=== PATIENT | male | born 1980 | race Two or more races ===

== ENCOUNTER 2021-11-06 08:03 | Outpatient (CLI) | payer OTHER | END 2021-11-06 08:27 | disposition home or self-care (01) | LOC: LAB 08:03 | DX: R10.84 Generalized abdominal pain (principal); K51.90 Ulcerative colitis, unspecified, without complications ==

== ENCOUNTER 2021-11-26 07:00 | Outpatient (CLI) | payer OTHER | END 2021-11-26 07:33 | disposition home or self-care (01) | LOC: LAB 07:00 | PROVIDERS: ATTEND Internal Medicine Gastroenterology | DX: R94.5 Abnormal results of liver function studies (principal) ==

== ENCOUNTER 2022-02-18 07:10 | Outpatient (CLI) | payer OTHER | END 2022-02-18 07:22 | disposition home or self-care (01) | LOC: LAB 07:10 | DX: E66.9 Obesity, unspecified (principal); R73.01 Impaired fasting glucose; E11.65 Type 2 diabetes mellitus with hyperglycemia ==

== ENCOUNTER → 2023-01-13 06:52 | Outpatient (CLI) | payer OTHER | END | disposition home or self-care (01) | LOC: LAB 06:52 | PROVIDERS: ATTEND General Practice | DX: E29.1 Testicular hypofunction (principal); B19.10 Unspecified viral hepatitis B without hepatic coma; I11.9 Hypertensive heart disease without heart failure; E11.65 Type 2 diabetes mellitus with hyperglycemia ==

== ENCOUNTER 2023-01-22 10:31 | Outpatient (CLI) | payer OTHER | END 2023-01-22 10:33 | disposition home or self-care (01) | LOC: SONOGRAMA 10:31 | PROVIDERS: ATTEND General Practice | DX: B19.10 Unspecified viral hepatitis B without hepatic coma (principal) ==

== ENCOUNTER → 2023-07-29 08:51 | Outpatient (CLI) | payer OTHER ==
[2023-07-29 09:27] LABS: PH,URINE 5.5 (5.0-8.0); URINE APPEARANCE Clear; URINE BILIRRUBIN Negative (NEGATIVE); URINE BLOOD Negative; URINE COLOR Yellow; URINE GLUCOSE Negative (NEGATIVE); URINE LEUKOCYTE Negative; URINE NITRATE Negative; URINE PROTEIN Negative (NEGATIVE); URINE UROBILINOGEN 0.2 E.U./dl
[2023-07-29 09:29] LABS: URINE BACTERIA 6.2 uL (0.0-1933); URINE EPITHELIAL CELLS 2.4 uL (0.0-38.8); URINE WBC 1.8 uL (0.0-23.2)
[2023-07-29 09:36] LABS: HEMOGLOBIN 14.9 g/dL (13-16.00); MEAN CELL VOLUME 88.5 fL (80.0-100.00); MEAN CORPUSCULAR HEMOGLOBIN 30.1 pg (27.00-32.0); PLATELET COUNT 185 K/uL (150-450); RED BLOOD COUNT 4.97 M/uL (4.00-6.00); RED CELL DISTRIBUTION WIDTH 13.2 % (11.5-14.5)
[2023-07-29 09:37] LABS: URINE RBC 1.8 uL (0.0-20.8)
[2023-07-29 10:08] LABS: INR 1.06; PROTHROMBIN TIME 11.1 SECONDS (9.0-11.5)
[2023-07-29 10:27] LABS: ALBUMIN 4.2 gm/dL (3.4-5.0); ALKALINE PHOSPHATASE 60 U/L (50-136); ALT/SGPT 83 U/L (12-78); ANION GAP 10 (10.0-20.0); AST/SGOT 31 U/L (15-37); BILIRUBIN TOTAL 0.66 mg/dL (0.3-1.2); BLOOD UREA NITROGEN 21 mg/dL (7-18); BUN CREA RATIO 24 (7.0-25.0); CALCIUM 9.4 mg/dL (8.5-10.1); CARBON DIOXIDE 30 mEq/L (21-32); CHLORIDE 106 mmol/L (98-107); CREATININE SERUM 0.87 mg/dL (0.70-1.30); GFR 95.77; GLOBULINA 3.2 G/DL (2.4-3.5); GLUCOSE FASTING 116 mg/dL (65-100); HDL 49 mg/dl (40-60); OSMOLALITY SERUM 287 MOSM/KG (275-295); POTASSIUM 3.95 mEq/L (3.5-5.1); SODIUM 142 mmol/L (136-145); TOTAL PROTEIN 7.4 gm/dL (6.4-8.2); TRIGLYCERIDES 131 mg/dL (0-150); VLDL 26 (0-39)
[2023-07-29 10:31] LABS: C-REACTIVE PROTEIN < 0.29 MG/DL (0.00-0.29); CHOL HDL RATIO 5.2 (0-5.0); CHOLESTEROL 253 mg/dL (0-200); LDL 178 mg/dl (0-130)
== END | disposition home or self-care (01) ==
LOC: LAB 08:51
PROVIDERS: ATTEND Internal Medicine Endocrinology, Diabetes & Metabolism
DX: K51.50 Left sided colitis without complications (principal); E11.65 Type 2 diabetes mellitus with hyperglycemia; E03.8 Other specified hypothyroidism; E55.9 Vitamin D deficiency, unspecified; I10 Essential (primary) hypertension; K76.0 Fatty (change of) liver, not elsewhere classified; L40.9 Psoriasis, unspecified; K51.90 Ulcerative colitis, unspecified, without complications